=== PATIENT | female | born 1980 | race Caucasian/White ===

== ENCOUNTER 2024-08-11 22:24 | Emergency (ER) | payer BC ==
[2024-08-11] MEDS: Lidocaine 1% 10 ML MDV ONE (23:18)
[2024-08-11] MEDS: Acetaminophen/HYDROcodone 325-5 MG Tab PO ONE (23:18)
[2024-08-11] MEDS: ceFAZolin 1 GM Vial IM ONE (23:18)
== END 2024-08-12 00:21 | disposition home or self-care (01) ==
LOC: JD.ED 22:24
DX: S92.422B Displaced fracture of distal phalanx of left great toe, initial encounter for open fracture (principal); Z79.899 Other long term (current) drug therapy; W20.8XXA Other cause of strike by thrown, projected or falling object, initial encounter
CPT/HCPCS: 73660; 96372; 99283; A9270; J0690; J3490